=== PATIENT | female | born 1995 | race Two or more races ===

== ENCOUNTER 2023-02-20 01:42 | Emergency (ER) | payer MEDICAID ==
[~2023-02-20] VITALS: Ht 157.5 cm; Wt 56.8 kg
[2023-02-20 01:52] VITALS: BP 134/70
[2023-02-20] MEDS ORDERED: proCHLORperazine 10mg tablet PO ONE (02:55)
[2023-02-20] MEDS ORDERED: ketorolac trometh inj. 60 MG/2 ML VIAL IM ONE (02:55)
[2023-02-20] MEDS ORDERED: bisacodyl 5mg tablet.DR PO ONE (02:55)
[2023-02-20] MEDS ORDERED: acetaminophen 325mg tablet PO ONE (02:55)
== END 2023-02-20 03:36 | disposition home or self-care (01) ==
LOC: ER 01:43
DX: R51.9 Headache, unspecified (principal); R10.11 Right upper quadrant pain; R09.81 Nasal congestion; M54.2 Cervicalgia; R10.9 Unspecified abdominal pain; R12 Heartburn; Z88.1 Allergy status to other antibiotic agents
CPT/HCPCS: 96372; 99284; J1885; Q0164

== ENCOUNTER 2023-05-09 22:41 | Emergency (ER) | payer MEDICAID ==
[~2023-05-09] VITALS: Ht 157.5 cm; Wt 53.6 kg
[2023-05-09 22:43] VITALS: BP 113/71; PULSE 65; RESP 16; TEMP 98.5; O2SAT 100
== END 2023-05-10 02:19 | disposition left against medical advice (07) ==
LOC: ER 22:45
DX: G47.00 Insomnia, unspecified (principal); Z53.21 Procedure and treatment not carried out due to patient leaving prior to being seen by health care provider
CPT/HCPCS: 99281